=== PATIENT | female | born 1940 | race Caucasian/White ===

== ENCOUNTER 2021-03-26 12:30 | Emergency (ER) | payer MEDICARE, SELFPAY ==
[2021-03-26 12:32] VITALS: BP 158/99; PULSE 92; RESP 16; TEMP 36.6; O2SAT 98; BMI 28.1
--- NOTE | 2021-03-26 12:52 | HMH.EDGENADL ---
ED Disposition Clinical Impression: Lumbar radiculopathy Disposition: Home, Self-Care Condition on Discharge: Good Instructions: DI for Low Back Pain, DI for Back Pain With Sciatica Prescriptions: Naproxen [Naproxen 500mg tab] 500 mg PO BID PRN #30 tab PRN Reason: Mild Pain Transmission Status: Pending to [email or web address] #[id number] predniSONE [Prednisone 20mg Tab] 40 mg PO DAILY #10 tab Transmission Status: Pending to [email or web address] # Referrals: Provider,Referral, [Primary Care Provider] - Time of Disposition: 13:10 - Critical Care Critical Care Time: No Attestation: On , the high probability of a clinically significant, sudden or life threatening deterioration of the following system(s) required my full and direct attention, intervention and personal management. The time I documented below is in addition to time spent performing reported procedures but includes the following listed in this critical care notation. Medical Decision Making - Medical Records Medical records reviewed: Yes: I reviewed the patient's medical records. - Saji Inquiry Pt receiving controlled substance: No Vital Signs: 03/26/21 12:32 Temperature 98 F Temperature Source Oral Pulse Rate [Radial] 92 H Respiratory Rate 16 Blood Pressure [Right Arm] 158/99 H Blood Pressure Mean [Right Arm] 118 Blood Pressure Position [Right Arm] Sitting 02 Sat by Pulse Oximetry 98 Oxygen Delivery Method Room Air Orders (Tests/Meds): ED MEDICATIONS Generic Name Dose Route Start Last Admin Trade Name Freq PRN Reason Stop Dose Admin Ketorolac Tromethamine 15 mg 03/26/21 13:03 Ketorolac 30mg/Ml Vial IV 03/26/21 13:04 ONCE ONE Methylprednisolone Sodium Succinate 40 mg 03/26/21 13:03 Methylprednisolone Sod Succ 40mg Vial IM 03/26/21 13:04 ONCE ONE Medical Decision Narrative: In summary this is a very pleasant 80-year-old female presenting to the emergency department with low back pain. Patient clinically stable on arrival. Vital signs within normal limits. Pain has been present for the last 7 days, started after a long car ride. She is able to ambulate. Denies symptoms of cauda equina or spinal epidural abscess. She does not have significant osteoporosis, no trauma. I doubt acute fracture. Offered her x-rays, but believe they would be low yield. She would like to defer at this time. She also plans to return to [place] next week. Does not want to follow-up with a primary care physician, photo lab specialist here. Does not want to be scheduled for an outpatient MRI. We will plan to treat her pain conservatively. Given IM Solu-Medrol and Toradol. Lidoderm patch applied. Given prescriptions for 5 days of prednisone, naproxen. Counseled on return precautions. Stable for discharge. General Adult HPI - General Chief complaint: Back Pain/Injury Stated complaint: back spasms Time Seen by Provider: 03/26/21 13:04 Mode of Arrival: Ambulatory Limitations: No Limitations Description of Symptoms (Recalled from ER Triage Doc. by RN): TO ED PER [employer] CAR WITH C/O LT LOWER BACK RADIATING TO LT BUTTOCKS X 1 WEEK. STATES PT FROM [place] AND PAIN STARTED ON DRIVE TO [place], PAIN BECOMING PROGRESSIVELY WORSE. DENIES ANY BOWEL OR BLADDER INCONTINENCE - History of Present Illness HPI narrative: 80-year-old female presenting to the emergency department with low back pain. Pain started 1 week ago. Initially was located in her left buttock. Radiated minimally into the back of her thigh. Over the last 2 days the pain has shifted. Now in her mid low back and radiating to the right. Has pain in the center part of her back when going from seated to standing and when bending over. No numbness, weakness, tingling in her genital area. No numbness or weakness in her legs. She has most difficulty when squatting to use the restroom. No dysuria or incontinence. She has had sciatica in the past, this feels similar.
[2021-03-26 13:29] VITALS: BP 155/74; PULSE 78; RESP 16; TEMP 36.6; O2SAT 98
== END 2021-03-26 13:30 | disposition home or self-care (01) ==
PROVIDERS: Emergency Provider Emergency Medicine
DX: M54.16 Radiculopathy, lumbar region (principal)
CPT/HCPCS: 96372; 99281

== ENCOUNTER 2021-04-01 09:11 | Emergency (ER) | payer MEDICARE, SELFPAY ==
[2021-04-01 09:12] VITALS: BP 151/72; PULSE 84; RESP 16; TEMP 36.9; O2SAT 95; BMI 67.6
--- NOTE | 2021-04-01 09:35 | HMH.EDGENADL ---
ED Disposition Clinical Impression: Low back pain with sciatica Qualifiers: Chronicity: acute Back pain laterality: bilateral Sciatica laterality: sciatica of right side Qualified Code(s): M54.41 - Lumbago with sciatica, right side Disposition: Home, Self-Care Condition on Discharge: Good Instructions: DI for Back Pain With Sciatica Prescriptions: predniSONE [Prednisone 20mg Tab] 40 mg PO DAILY #10 tab Transmission Status: Pending to [facility] #[id number] Referrals: Provider,Referral, [Primary Care Provider] - - Critical Care Critical Care Time: No Attestation: On 04/01/21, the high probability of a clinically significant, sudden or life threatening deterioration of the following system(s) required my full and direct attention, intervention and personal management. The time I documented below is in addition to time spent performing reported procedures but includes the following listed in this critical care notation. Medical Decision Making - Medical Records Medical records reviewed: Yes: I reviewed the patient's medical records. MR Comment: Reviewed emergency department visit 03/26/2021 - Saji Inquiry Pt receiving controlled substance: No Vital Signs: 04/01/21 09:12 Temperature 98.5 F Temperature Source Oral Pulse Rate [Right] 84 Respiratory Rate 16 Blood Pressure [Right Arm] 151/72 H Blood Pressure Mean [Right Arm] 98 Blood Pressure Source [Right Arm] Automatic Cuff 02 Sat by Pulse Oximetry 95 Oxygen Delivery Method Room Air Orders (Tests/Meds): ED MEDICATIONS Generic Name Dose Route Start Last Admin Trade Name Freq PRN Reason Stop Dose Admin Methylprednisolone Sodium Succinate 40 mg 04/01/21 09:45 Methylprednisolone Sod Succ 40mg Vial IM 04/01/21 09:46 ONCE ONE Discontinued Medications Generic Name Dose Route Start Last Admin Trade Name Freq PRN Reason Stop Dose Admin Ketorolac Tromethamine 30 mg 04/01/21 09:44 Ketorolac 30mg/Ml Vial IM 04/01/21 09:45 ONCE ONE General Adult HPI - General Chief complaint: Back Pain/Injury Stated complaint: Pain in lower back-down right leg Time Seen by Provider: 04/01/21 09:35 Mode of Arrival: Ambulatory Limitations: No Limitations Description of Symptoms (Recalled from ER Triage Doc. by RN): patient retured to ER for refill on prednisone. patient was initially seen last monday 03/26 for lower lumbar pain radiating down right leg. patient has rx of naproxen and prednisone x5days. patient rates her right leg and lower back pain 01/03. - History of Present Illness HPI narrative: 2-week history of lower back pain that started after traveling from [facility] and then exacerbated by a trip to [place]. Seen in this emergency department on 03/26/2021. Started on prednisone and naproxen and given an injection of Toradol and Solu-Medrol in the emergency department. This helped tremendously. Within 3 hours she noticed marked improvement. She is now out of her prednisone and is supposed to travel back to [place] tomorrow and is afraid that her symptoms may worsen again and therefore requests a new prescription for prednisone. The only change in her symptomatology is the pain now radiates down the back of her right thigh. No numbness or weakness or loss of bowel or bladder control. - Related Data Home Medications Medication Instructions Recorded Confirmed predniSONE [Prednisone 20mg 40 mg PO DAILY 04/01/21 04/01/21 Tab] Previous Rx's Medication Instructions Recorded Naproxen [Naproxen 500mg tab] 500 mg PO BID PRN #30 tab 03/26/21 predniSONE [Prednisone 20mg 40 mg PO DAILY #10 tab 04/01/21 Tab] Allergies Allergy/AdvReac Type Severity Reaction Status Date / Time No Known Allergies Allergy Verified 03/26/21 12:51 [facility] History - Hepatitis A Screen Drug use history?: No High risk sexual behaviors?: No History of sexually transmitted infection?: No Currently emp
[2021-04-01 10:12] VITALS: BP 130/83; PULSE 78; RESP 16; TEMP 36.8; O2SAT 97
== END 2021-04-01 10:14 | disposition home or self-care (01) ==
PROVIDERS: Emergency Provider Emergency Medicine
DX: M54.41 Lumbago with sciatica, right side (principal)
CPT/HCPCS: 96374; 96372; 96375; 99281

== ENCOUNTER 2023-11-20 08:17 | Emergency (ER) | payer MEDICARE, SELFPAY ==
[2023-11-20 08:19] VITALS: BP 144/92; PULSE 89; RESP 20; TEMP 36.6; O2SAT 97; BMI 28.0
--- NOTE | 2023-11-20 08:44 | ED_ITS ---
Discharge Plan Disposition Patient Disposition: Home, Self-Care Prescriptions Prescriptions: New prednisone 20 mg tablet 40 mg PO DAILY 5 Days Qty: 10 0RF Discontinued prednisone 20 MG tablet 40 mg PO DAILY prednisone 20 MG tablet 40 mg PO DAILY Qty: 10 0RF No Action naproxen 500 MG tablet 500 mg PO BID PRN (Reason: Mild Pain) Qty: 30 0RF Referrals Follow up/Referrals: Provider,Referral, MD [Primary Care Provider] - See instructions Activity Restrictions/Add. Instructions Additional Instructions/Restrictions: Prednisone each morning for the next 5 days. Be sure to take this with plenty of food and water to prevent GI upset and kidney damage. Call your family doctor to establish care for this visit to the emergency department and schedule follow-up within 48 hours to ensure improvement. If you have any worsening of your condition or any other concerning signs or symptoms, return to the emergency department or your primary care doctor for further evaluation. Clinical Impressions Clinical Impression: Lumbar spine pain Discharge ED Provider: Benjy Bartlett General Adult HPI General Chief complaint: PAIN Stated complaint: lower back pain Time Seen by Provider: 11/20/23 08:21 Mode of Arrival: Ambulatory Source of Information: Patient Limitations: No Limitations Description of Symptoms (Recalled from ER Triage Doc. by RN): Patient reports chronic back pain unable to control pain with PRN medications. Patient states she has been doing more strenuous work with moving and pain is now mostly in lower back. History of Present Illness HPI narrative: 83-year-old female with history of low back pain following with pain specialist in [place] presenting with back pain. Patient states that she has been moving out of her current house here in [place] to move permanently to [place] due to health concerns in the family. Patient states that she was moving a heavy box yesterday, 11/19 when she started having significant pain. Has taken her Tylenol, acetaminophen, oxycodone, none of these have helped. Denies bowel or bladder dysfunction, saddle anesthesia, leg weakness, but does have pain radiating into her left leg intermittently. Related Data Previous Rx's Medication Instructions Recorded naproxen 500 mg tablet 500 mg PO BID PRN Mild Pain #30 03/26/21 tabs prednisone 20 mg tablet 40 mg PO DAILY 5 days #10 tabs 11/20/23 Allergies Allergy/AdvReac Type Severity Reaction Status Date / Time No Known Allergies Allergy Verified 03/26/21 12:51 [facility] Disclaimer: The information contained in this section may have been updated after the patient was seen, as this information can be updated by other users. Social History Smoking Status: Never smoker alcohol intake: never current occupational status: retired Travel in the last 8 weeks: None ROS Obtained: Yes All systems reviewed & no additional complaints except as documented Physical Exam General General appearance: alert and in no apparent distress Head Head exam: atraumatic and normocephalic Eye Eye exam: Present normal appearance, PERRL and EOMI ENT ENT exam: Present mucous membranes moist Neck Neck exam: Present normal inspection, full ROM and trachea midline Respiratory Respiratory exam: Absent respiratory distress, wheezes, stridor, accessory muscle use or prolonged expiratory phase Cardiovascular Cardiovascular exam: Present normal rhythm Abdominal Exam Abdominal exam: Present soft; Absent distention, tenderness, guarding, rebound or rigidity Extremities Exam Extremities exam: Absent edema Back Exam Back exam: Present tenderness and vertebral tenderness Neurological Exam Neurological exam: Present alert, oriented X3, CN II-XII intact and normal gait; Absent motor sensory deficit Skin Skin exam: Present warm and dry; Absent diaphoresis or erythema Medical Decision Making Medical Records Medical records reviewed: Yes I reviewed the patient's medical records. Saji Inquiry Pt receiving controlled substance: No Saji was queried for this patient: No Vital Signs: 11/20/23 08:19 Temperature 97.9 F Temperature Source Oral Pulse Rate [Right] 89 Respiratory Rate 20 Blood Pressure [Right Arm] 144/92 H Blood Pressure Mean [Right Arm] 109 Blood Pressure Source [Right Arm] Automatic Cuff 02 Sat by Pulse Oximetry 97 Oxygen Delivery Method Room Air Orders (Tests/Meds): ED MEDICATIONS Generic Name Dose Route Start Last Admin Trade Name Freq PRN Reason Stop Dose Admin Prednisone 40 mg 11/20/23 08:42 Prednisone 20mg Tab PO 11/20/23 08:43 ONCE ONE Medical Decision Narrative: 83-year-old female with history of low back pain following with pain specialist in [place] presenting with back pain. Patient states that she has been moving out of her current house here in [place] to move permanently to [place] due to health concerns in the family. Patient states that she was moving a heavy box yesterday, 11/19 when she started having significant pain. Has taken her Tylenol, acetaminophen, oxycodone, none of these have helped. Denies bowel or b ladder dysfunction, saddle anesthesia, leg weakness, but does have pain radiating into her left leg intermittently. History was obtained via conversation with patient. On arrival, patient hemodynamically stable, alert, oriented x4, appropriate, GCS 15, moving all extremities spontaneously, pupils equal and reactive to light. Full physical exam performed and significant for very well-appearing woman in no acute distress. She does have midline lumbar pain without obvious deformity or outward signs of injury. Neurologically intact and patient ambulatory without issue. Differential includes differential includes acute on chronic back pain, spinal arthritis, compression fracture, among others. Patient was given prednisone 40 mg for symptomatic management and correction of underlying abnormalities. Imaging of the back considered including CT, but patient states that she has follow-up with her pain doctor when she gets back to [place] in the the next couple of days. Because she is not having any red flag signs or symptoms, MRI not deemed necessary and outpatient CT scans deemed appropriate at this time. I feel it is less likely the patient has compression fracture because she did not have acute pain, it was insidious and patient states that this is in the same location, similar character, just worse than typical. Given patient presentation, workup, history, this most likely represents acute on chronic midline lumbar spine pain in the setting of known disc disease. Because patient at baseline without signs or symptoms of clinical decompensation, deemed appropriate for discharge. Results were relayed to patient who voiced understanding and were agreeable to outpatient management and follow up. At the time of discharge the patient was hemodynamically stable, tolerating PO, and mobilizing appropriately. Critical Care Critical Care Time Critical Care Time: No
[2023-11-20] MEDS: predniSONE 20MG TAB 40 MG PO (08:51)
[2023-11-20 08:55] VITALS: BP 136/82; PULSE 84; RESP 20; TEMP 36.6; O2SAT 97
== END 2023-11-20 08:56 | disposition home or self-care (01) ==
PROVIDERS: Emergency Provider Emergency Medicine
DX: M54.50 Low back pain, unspecified (principal); X50.0XXA Overexertion from strenuous movement or load, initial encounter
CPT/HCPCS: 99283